=== PATIENT | female | born 1955 | race Hispanic/Latino ===

== ENCOUNTER 2018-02-19 12:17 | Emergency (ER) | payer SELFPAY ==
[~2018-02-19] VITALS: Ht 160 cm; Wt 54.4 kg
[2018-02-19 14:25] LABS: BASOPHILS % 0.7 % (0.0-1.0); EOSINOPHILS # (AUTO) 0.2 (0.0-0.4); EOSINOPHILS % 3.1 % (0.0-6.0); LYMPHOCYTES # (AUTO) 1.9 (1.0-3.2); LYMPHOCYTES % 31.8 % (18.0-39.1); MEAN CORPUSCULAR HEMOGLOBIN 29.3 pg (28-32); MEAN CORPUSCULAR HGB CONC 33.3 g/dL (31-35); MEAN CORPUSCULAR VOLUME 87.9 fL (81-99); MONOCYTES # (AUTO) 0.5 (0.2-0.8); MONOCYTES % 8.7 % (4.4-11.3); NEUTROPHILS # (AUTO) 3.4 (2.1-6.9); NEUTROPHILS % 55.4 % (38.7-80.0); PLATELET COUNT 296 x10e3/uL (140-360); RED BLOOD COUNT 4.78 x10e6/uL (3.6-5.1); RED CELL DISTRIBUTION WIDTH 14.1 % (11.7-14.4)
[2018-02-19 14:31] LABS: CLARITY,URINE SL CLOUDY (CLEAR); COLOR,URINE YELLOW (YELLOW); KETONES,URINE 2+ (NEGATIVE); LEUKOCYTE ESTERASE ,URINE NEGATIVE (NEGATIVE); NITRITE,URINE NEGATIVE (NEGATIVE); PROTEIN,URINE DIPSTICK TRACE (NEGATIVE); URINE UROBILINOGEN 1 mg/dL (0.2 - 1)
[2018-02-19 14:32] LABS: BILIRUBIN,URINE 1+ (NEGATIVE)
[2018-02-19 14:36] LABS: ALANINE AMINOTRANSFERASE 10 IU/L (0-55); ALBUMIN/GLOBULIN RATIO 1.1 (0.8-2.0); ALKALINE PHOSPHATASE 58 IU/L (40-150); ANION GAP 11.8 mmol/L (8-16); BLOOD UREA NITROGEN 10 mg/dL (7-26); BUN/CREATININE RATIO 12 (6-25); CALCIUM 9.5 mg/dL (8.4-10.2); CARBON DIOXIDE 30 mmol/L (22-29); CHLORIDE 100 mmol/L (98-107); CREATININE, SERUM 0.81 mg/dL (0.57-1.11); EST GLOMERULAR FILTRATION RATE > 60 ML/MIN (60-); GLUCOSE 83 mg/dL (74-118); POTASSIUM 3.8 mmol/L (3.5-5.1); SODIUM 138 mmol/L (136-145)
[2018-02-19 14:42] LABS: BACTERIA,URINE RARE /HPF; EPITHELIAL CELLS,URINE RARE /LPF; WBC,URINE (MAN) 0-5 /HPF (0-5)
[2018-02-19 15:09] LABS: AMYLASE 80 U/L (25-125); LIPASE 48 U/L (8-78)
[2018-02-19] MEDS ORDERED: KETOROLAC TROMETHAMINE 30 MG/ML VIAL IV STA (16:44)
--- NOTE | 2018-02-19 17:17 | Diagnostic Imaging Report ---
EXAM: Gallbladder Ultrasound INDICATION: Right flank pain and nausea for 4 days. COMPARISON: None. TECHNIQUE: Transverse and longitudinal images of the gallbladder were obtained. FINDINGS: Liver: 13.4 cm in length. Mild prominence of the portal triads. Gallbladder: Stones/Sludge: Shadowing echogenic foci within the gallbladder lumen consistent with cholelithiasis. Wall: 0.2 cm Appearance: No wall thickening, pericholecystic fluid or hydrops. Sonographic Mckeon's Sign: Negative Bile Ducts: Intrahepatic Ducts: No dilatation Extrahepatic Ducts: Common bile duct measures 0.5 cm, no dilatation Visualized portions of the pancreas are unremarkable. Free Fluid: No ascites or pleural effusion The main portal vein measures 0.9 cm in diameter with hepatopedal flow. Atherosclerotic calcifications of the abdominal aorta without aneurysmal dilatation. IMPRESSION: 1. Cholelithiasis. No evidence of cholecystitis. No biliary dilatation. 2. Mild prominence of portal triads is a nonspecific finding which however, can be seen with acute hepatitis in the proper clinical setting. Signed by: Dr. Gabrielle Beltran M.D. on 02/19/2018 5:14 PM
--- NOTE | 2018-02-19 17:22 | Diagnostic Imaging Report ---
EXAM: CT Abdomen and Pelvis WITHOUT contrast INDICATION: Right flank pain and vomiting for 4 days. COMPARISON: None. TECHNIQUE: Abdomen and pelvis were scanned utilizing a multidetector helical scanner from the lung base to the pubic symphysis without administration of IV contrast. Absence of intravenous contrast decreases sensitivity for detection of focal lesions and vascular pathology. Coronal and sagittal reformations were obtained. Renal stone protocol was performed. IV CONTRAST: None. ORAL CONTRAST: Water RADIATION DOSE: Total DLP: 181.94 mGy*cm Estimated effective dose: (DLP x 0.015 x size factor) mSv COMPLICATIONS: None FINDINGS: LINES and TUBES: None. LOWER THORAX: Bibasilar dependent atelectasis. HEPATOBILIARY: No focal hepatic lesions. No biliary ductal dilation. GALLBLADDER: Cholelithiasis best visualized on ultrasound of gallbladder performed on the same day. No wall thickening. SPLEEN: No splenomegaly. PANCREAS: No focal masses or ductal dilatation. ADRENALS: No adrenal nodules. KIDNEYS/URETERS: No hydronephrosis. No cystic or solid mass lesions. No stones. GI TRACT: No abnormal distention, wall thickening, or evidence of bowel obstruction. Colonic diverticulosis without CT evidence of diverticulitis. Appendix not clearly identified, however, no evidence of appendicitis. PELVIC ORGANS/BLADDER: The uterus is not visualized suggesting status post hysterectomy. LYMPH NODES: No lymphadenopathy. VESSELS: Calcifications of the aorta and iliac arteries without aneurysmal dilatation. PERITONEUM / RETROPERITONEUM: No free air or fluid. BONES: There are degenerative changes in the lumbar spine particularly at L4-L5 and L5-S1.. SOFT TISSUES: Small fat-containing periumbilical hernia. IMPRESSION: 1. Cholelithiasis without cholecystitis. No biliary dilatation. 2. Colonic diverticulosis without diverticulitis. Signed by: Dr. Gabrielle Beltran M.D. on 02/19/2018 5:19 PM
[2018-02-19 18:10] VITALS: BP 138/94
== END 2018-02-19 18:50 | disposition home or self-care (01) ==
LOC: ER 12:17
DX: R10.13 Epigastric pain (principal); R11.0 Nausea; K80.20 Calculus of gallbladder without cholecystitis without obstruction
CPT/HCPCS: 36415; 74176; 76705; 80053; 81001; 82150; 83690; 85025; 93005; 99284; J1885